=== PATIENT | male | born 1990 ===

== ENCOUNTER 2022-03-01 22:06 | Emergency (ER) | payer SELFPAY ==
[2022-03-02] MEDS ORDERED: HYOSCYAMINE SUBL 0.125 MG TAB SL ONE (06:11)
--- NOTE | 2022-03-02 06:13 | Emergency Department Report ---
<MAYLIN SCHROEDER - Last Filed: 03/02/22 06:12> ED Abdominal Pain HPI - General Chief Complaint: Abdominal Pain Stated Complaint: ABD PAIN Source: patient Mode of arrival: Ambulatory Limitations: Language Barrier - History of Present Illness Initial Comments: 31-year-old male presents emerged department complaining of a couple day history of lower abdominal pain which she thinks may be related to a hernia which may have been sustained while he was working pain is sharp and aching to the suprapubic region and occasionally he feels a little amount. Reports no hematuria no fevers, chills, sweats no chest pain palpitations no dysuria Radiation: none Severity scale (0 -10): 10 - Related Data Previous Rx's Medication Instructions Recorded Last Taken Type Naproxen [Naprosyn] 500 mg PO BID #14 tab 03/02/22 Unknown Rx Allergies Allergy/AdvReac Type Severity Reaction Status Date / Time No Known Allergies Allergy Verified 03/01/22 22:25 ED Review of Systems Comment: All other systems reviewed and negative ED Past Medical Hx - Past Medical History Previous Medical History?: Yes Additional medical history: Hernia - Surgical History Past Surgical History?: No - Medications Home Medications: Home Medications Medication Instructions Recorded Confirmed Last Taken Type Naproxen [Naprosyn] 500 mg PO BID #14 tab 03/02/22 Unknown Rx ED Physical Exam - General Limitations: Language Barrier General appearance: alert, in no apparent distress - Head Head exam: Present: atraumatic, normocephalic - Eye Eye exam: Present: normal appearance, PERRL, EOMI Pupils: Present: normal accommodation - ENT ENT exam: Present: mucous membranes moist - Neck Neck exam: Present: normal inspection - Respiratory Respiratory exam: Present: normal lung sounds bilaterally. Absent: respiratory distress - Cardiovascular Cardiovascular Exam: Present: regular rate, normal rhythm. Absent: systolic murmur, diastolic murmur, rubs, gallop - GI/Abdominal GI/Abdominal exam: Present: soft, tenderness (To the lower abdomen suprapubic region with palpation. No obvious ventral hernia is appreciated. Minimal d iscomfort to the mons pubis region. Normal testicles), normal bowel sounds - Rectal Rectal exam: Present: deferred - Extremities Exam Extremities exam: Present: normal inspection - Back Exam Back exam: Present: normal inspection - Neurological Exam Neurological exam: Present: alert, oriented X3 - Psychiatric Psychiatric exam: Present: normal affect, normal mood - Skin Skin exam: Present: warm, dry, intact, normal color. Absent: rash ED Disposition Clinical Impression: Epiploic appendagitis Disposition: HOME / SELF CARE / HOMELESS Condition: Stable Instructions: Epiploic Appendagitis Additional Instructions: Take medications as prescribed. Follow-up with primary care provider if no improvement or worsening symptoms. Prescriptions: Naproxen [Naprosyn] 500 mg PO BID #14 tab Referrals: PRIMARY CARE, [Primary Care Provider] - 3-5 Days Forms: Work/School Release Form(ED) Print Language: LAO <STEFFANIE CONNOLLY - Last Filed: 03/02/22 16:23> ED Abdominal Pain HPI - History of Present Illness Initial Comments: 31-year-old male presents to the emergency department for 2-day history of abdominal pain. He states that pain is to suprapubic region and is intermittent. He states he has a history of a hernia and thinks that pain may be related to hernia. He denies nausea, vomiting, fever, dysuria, or penile discharge. He states that he has not taken any medication for the pain. MD Complaint: abdominal pain -: Gradual, days(s) (To) Location: suprapubic Radiation: none Migration to: no migration Quality: aching Consistency: intermittent Worsens With: other (Palpation) Associated Symptoms: denies: nausea, vomiting, diarrhea, fever, chills, dysuria, hematemesis, hematochezia, melena, hematuria, anorexia, syncope ED Review of Systems ROS: Stated complaint: ABD PAIN Other details as noted in HPI Comment: All other systems reviewed and negative Constitutional: denies: chills, fever Respiratory: denies: cough, shortness of breath, SOB with exertion, SOB at rest, wheezing Cardiovascular: denies: chest pain, palpitations Gastrointestinal: abdominal pain. denies: nausea, vomiting, diarrhea, wallace temesis, melena, hematochezia Genitourinary: denies: urgency, dysuria, frequency, hematuria, discharge, testicular pain Musculoskeletal: denies: back pain Neurological: denies: headache, weakness ED Physical Exam - General Limitations: Language Barrier (Used customer success representative phone with customer success representative #[phone].) General appearance: alert, in no apparent distress - Head Head exam: Present: atraumatic, normocephalic - Eye Eye exam: Present: normal appearance, PERRL, EOMI. Absent: conjunctival injection, periorbital swelling, periorbital tenderness - Neck Neck exam: Present: normal inspection. Absent: tenderness ((To the lower abdomen suprapubic region with palpation. No obvious ventral hernia is appreciated. Minimal discomfort to the mons pubis region. Normal testicles)), lymphadenopathy - Respiratory Respiratory exam: Present: normal lung sounds bilaterally. Absent: respiratory distress, wheezes, rales, rhonchi, stridor - Cardiovascular Cardiovascular Exam: Present: regular rate, normal rhythm, normal heart sounds - GI/Abdominal GI/Abdominal exam: Present: soft, tenderness, normal bowel sounds. Absent: distended - Extremities Exam Extremities exam: Present: normal inspection, normal capillary refill. Absent: pedal edema, joint swelling, calf tenderness - Back Exam Back exam: Present: normal inspection. Absent: CVA tenderness (R), CVA tenderness (L) - Neurological Exam Neurological exam: Present: alert, oriented X3, normal gait - Psychiatric Psychiatric exam: Present: normal affect, normal mood - Skin Skin exam: Present: warm, dry, intact, normal color ED Course Vital Signs 03/01/22 03/02/22 22:18 12:30 Temperature 98.8 F Pulse Rate 87 80 Respiratory 16 16 Rate Blood Pressure 144/103 130/90 [Right] O2 Sat by Pulse 98 98 Oximetry ED Medical Decision Making - Lab Data Result diagrams: 03/02/22 06:37 03/02/22 06:37 - Radiology Data Radiology results: report reviewed CT abdomen and pelvis: FINDINGS: CT abdomen with IV contrast demonstrates grossly normal appearance of the liver, spleen, pancreas, kidneys, adrenal glands, and abdominal aorta. Gallbladder is present and without obvious abnormality. No biliary dilatation is present. CT pelvis with IV contrast demonstrates a prominent/large left inguinal hernia containing only fat. No bowel is contained within the hernia. Additionally, there is focal small area of inflammatory change adjacent to the sigmoid colon in the midline of the pelvis, anterior depth, just posterior to the left rectus abdominis musculature. The appearance is very suggestive of epiploic appendagitis, and most likely accounts for the patient's lower abdominal pain. Otherwise, the pelvis component of this exam is unremarkable. No pelvic mass, free fluid, or focal inflammatory changes noted. A normal appendix is visualized in the right lower quadrant. GI tract is grossly within normal limits. Visualized lung bases are clear. Review of osseous structures is grossly unremarkable for acute disease. IMPRESSION: 1. Large left inguinal hernia, containing only fat. 2. Small focal area of inflammatory change in the midline of the lower pelvis adjacent to the sigmoid colon with appearance very suggestive for epiploic appendagitis. 3. No other significant finding. - Medical Decision Making 31-year-old male presents to the emergency department for 2-day history of abdominal pain. He states that pain is to suprapubic region and is intermittent. He states he has a history of a hernia and thinks that pain may be related to hernia. He denies nausea, vomiting, fever, dysuria, or penile discharge. He states that he has not taken any medication for the pain. No gross abnormalities noted on assessment, and symptoms resolved after medications. No gross abnormalities noted on labs. CT scan positive for epiglottic appendagitis and large left inguinal hernia containing fat only. Patient will be treated with 7-day course of naproxen and advised to follow-up with his primary care provider for further evaluation and management. He is advised to follow-up in the emergency department for any concerning symptoms. He verbalized understanding of and agreement with plan of care. Critical care attestation.: If time is entered above; I have spent that time in minutes in the direct care of this critically ill patient, excluding procedure time. ED Disposition Is pt being admited?: No Does the pt Need Aspirin: No Time of Disposition: 11:57
[2022-03-02 07:16] LABS: Basophils % (Auto) 0.8 % (0.0-1.8); Eosinophils # (Auto) 0.2 K/mm3 (0.0-0.4); Eosinophils % (Auto) 2.7 % (0.0-4.3); Hemoglobin 13.7 gm/dl (11.8-15.2); Lymphocytes # (Auto) 1.9 K/mm3 (1.2-5.4); Lymphocytes % (Auto) 32.1 % (13.4-35.0); Mean Corpuscular HGB Conc 34 % (32-34); Mean Corpuscular Volume 93 fl (84-94); Monocytes # (Auto) 0.7 K/mm3 (0.0-0.8); Monocytes % (Auto) 11.6 % (0.0-7.3); Platelet Count 184 K/mm3 (140-440); Red Blood Count 4.32 M/mm3 (3.65-5.03); Red Cell Distribution Width 13.9 % (13.2-15.2)
[2022-03-02] MEDS ORDERED: ALUM-MAG HYDROXIDE-SIMETHICONE 200-200-20MG/5ML ORAL LIQD 30 ML PO ONE (07:43)
[2022-03-02] MEDS ORDERED: DICYCLOMINE 10 MG/5 ML ORAL LIQD PO ONE (07:43)
[2022-03-02] MEDS ORDERED: LIDOCAINE VISCOUS 2% 15 ML ORAL LIQD PO ONE (07:43)
[2022-03-02 08:34] LABS: Alanine Aminotransferase 17 units/L (7-56); Albumin 4.4 g/dL (3.9-5); BUN/Creatinine Ratio 19; Blood Urea Nitrogen 17 mg/dL (9-20); Calcium 9.1 mg/dL (8.4-10.2); Hemolysis Index 7
[2022-03-02 08:40] LABS: Bilirubin,Direct < 0.2 mg/dL (0-0.2)
--- NOTE | 2022-03-02 11:31 | Cat Scan Report ---
CT abdomen pelvis w con INDICATION / CLINICAL INFORMATION: Lower ABD Pain. TECHNIQUE: Axial CT imaging of abdomen and pelvis was obtained with IV contrast. Coronal and sagittal reformatte d imaging obtained and reviewed. All CT scans at this location are performed using CT dose reduction for ALARA by means of automated exposure control. COMPARISON: None FINDINGS: CT abdomen with IV contrast demonstrates grossly normal appearance of the liver, spleen, pancreas, ki dneys, adrenal glands, and abdominal aorta. Gallbladder is present and without obvious abnormality. N o biliary dilatation is present. CT pelvis with IV contrast demonstrates a prominent/large left inguinal hernia containing only fat. N o bowel is contained within the hernia. Additionally, there is focal small area of inflammatory santiago e adjacent to the sigmoid colon in the midline of the pelvis, anterior depth, just posterior to the l eft rectus abdominis musculature. The appearance is very suggestive of epiploic appendagitis, and mos t likely accounts for the patient's lower abdominal pain. Otherwise, the pelvis component of this exa m is unremarkable. No pelvic mass, free fluid, or focal inflammatory changes noted. A normal appendix is visualized in the right lower quadrant. GI tract is grossly within normal limits. Visualized lung bases are clear. Review of osseous structures is grossly unremarkable for acute disease. IMPRESSION: 1. Large left inguinal hernia, containing only fat. 2. Small focal area of inflammatory change in the midline of the lower pelvis adjacent to the sigmoid colon with appearance very suggestive for epiploic appendagitis. 3. No other significant finding. Signer Name: Elizabeth Chris MD Signed: 03/02/2022 11:26 AM Workstation Name: [id number]
[2022-03-02] MEDS ORDERED: KETOROLAC 10 MG TAB PO ONE (11:50)
[2022-03-02 12:31] VITALS: BP 130/90
== END 2022-03-02 12:30 | disposition home or self-care (01) ==
LOC: ED 22:06
DX: K63.89 Other specified diseases of intestine (principal)
CPT/HCPCS: 36415; 74177; 80048; 80076; 83690; 85025; 99284; Q9967